=== PATIENT | male | born 1955 | race African-American/Black ===

== ENCOUNTER 2017-07-02 14:29 | Inpatient (IN) | payer MEDICARE, MEDICAID ==
[~2017-07-02] VITALS: Ht 188 cm; Wt 124.3 kg
[2017-07-02 17:18] LABS: HEMATOCRIT. 26.5 % (42.0-52.0); HEMOGLOBIN. 8.3 g/dL (14.0-18.0); MEAN CORPUSCULAR HEMOGLOBIN 17.9 pg (28.0-32.0); MEAN CORPUSCULAR VOLUME 57.4 fL (80.0-94.0); MEAN PLATELET VOLUME 8.5 fl (7.4-10.4); PLATELET 527 x1000/uL (130-400); RED BLOOD CELL COUNT 4.62 mill/uL (4.7-6.1); RED CELL DISTRIBUTION WIDTH 25.5 % (11.6-14.6)
[2017-07-02 17:23] LABS: INR 1.1; PROTHROMBIN TIME 11.6 sec (9.4-11.6)
[2017-07-02 17:26] LABS: CHLORIDE 90 mEq/L (98-107)
[2017-07-02 17:55] LABS: PLATELET ESTIMATE INCREASED
[2017-07-02] MEDS ORDERED: POTASSIUM CHLORIDE 20MEQ TABLET SR PO ONE (19:30)
[2017-07-02] MEDS ORDERED: ONDANSETRON HCL 4MG/2ML VIAL IV PRN (20:30)
[2017-07-02] MEDS ORDERED: IPRATROPIUM/ALBUTEROL 0.5-3(2.5)MG/3ML NEB INH PRN (20:30)
[2017-07-02] MEDS ORDERED: DOCUSATE SODIUM 100MG CAPSULE PO PRN (20:30)
[2017-07-02] MEDS ORDERED: GUAIFENESIN 200MG/10ML SUGAR FREE UDC PO PRN (20:30)
[2017-07-02] MEDS ORDERED: CLONIDINE 0.1MG TABLET PO PRN (20:30)
[2017-07-02] MEDS ORDERED: DIPHENHYDRAMINE 50MG/ML VIAL IV PRN (20:30)
[2017-07-02] MEDS ORDERED: MAGNESIUM/ALUMINUM HYDROXIDE/SIMETHICONE 30ML UDC PO PRN (20:30)
[2017-07-02] MEDS ORDERED: NITROGLYCERIN 0.4MG TABLET SL SL PRN (20:30)
[2017-07-02 20:59] LABS: T4 FREE 1.13 ng/dL (0.76-1.46)
[2017-07-02] MEDS ORDERED: ZOLPIDEM TARTRATE 5MG TABLET PO PRN (21:00)
[2017-07-02] MEDS ORDERED: MORPHINE SULFATE 4 MG/ML CPJ (NOT FOR IM USE) IV PRN (21:00)
[2017-07-02] MEDS ORDERED: NA PHOS,M-B/NA PHOS,DI-BA ENEMA 118ML PR PRN (21:00)
[2017-07-02] MEDS ORDERED: TRAMADOL 50MG TABLET PO PRN (21:00)
[2017-07-02 21:24] LABS: VITAMIN B12 SERUM 556 pg/mL (211-911)
[2017-07-02 21:26] LABS: FOLIC ACID (FOLATE) SERUM > 20.00 ng/mL (>5.38)
[2017-07-02 22:15] LABS: CREATINE KINASE 260 IU/L (39-308); CREATINE KINASE MB FRACTION 3.7 ng/mL (0.5-3.6); TROPONIN I < 0.02 ng/mL (0.00-0.04)
[2017-07-03] VITALS (11 sets, daily range): BP systolic 98–134; BP diastolic 56–69
[2017-07-03] MEDS: SODIUM CHLORIDE 0.9% 1,000 ML IV SCH ×2 (02:42→14:36)
[2017-07-03] MEDS ORDERED: BISA-81 PO (05:57)
[2017-07-03] MEDS ORDERED: OLAN10TA3 PO (05:57)
[2017-07-03] MEDS ORDERED: DIVA500T PO (05:57)
[2017-07-03] MEDS ORDERED: HYDR-4001 PO (05:57)
[2017-07-03] MEDS ORDERED: FERR325T23 PO (05:57)
[2017-07-03] MEDS ORDERED: ASCO-339 PO (05:57)
[2017-07-03] MEDS ORDERED: ACET-2178 PO (05:57)
[2017-07-03] MEDS ORDERED: BENZ1TAB7 PO (05:57)
[2017-07-03] MEDS ORDERED: KDUR10 PO (05:57)
[2017-07-03 07:16] LABS: CREATINE KINASE 211 IU/L (39-308); CREATINE KINASE MB FRACTION 2.8 ng/mL (0.5-3.6); TROPONIN I < 0.02 ng/mL (0.00-0.04)
[2017-07-03] MEDS: METOPROLOL TARTRATE 25MG TABLET PO SCH ×2 (09:23→21:30)
[2017-07-03] MEDS: PANTOPRAZOLE SODIUM 40 MG/VIAL IV SCH ×2 (09:23→21:30)
[2017-07-03] MEDS ORDERED: IPRATROPIUM/ALBUTEROL 0.5-3(2.5)MG/3ML NEB HHN PRN (12:15)
[2017-07-03 13:04] LABS: HEMATOCRIT. 24.3 % (42.0-52.0); HEMOGLOBIN. 7.4 g/dL (14.0-18.0); MEAN CORPUSCULAR HEMOGLOBIN 17.6 pg (28.0-32.0); MEAN CORPUSCULAR VOLUME 57.6 fL (80.0-94.0); MEAN PLATELET VOLUME 8.4 fl (7.4-10.4); PLATELET 459 x1000/uL (130-400); RED BLOOD CELL COUNT 4.21 mill/uL (4.7-6.1); RED CELL DISTRIBUTION WIDTH 25.3 % (11.6-14.6)
[2017-07-03 13:41] LABS: CHLORIDE 93 mEq/L (98-107)
[2017-07-03 13:58] LABS: PLATELET ESTIMATE SLIGHTLY INCREASED
[2017-07-03] MEDS ORDERED: ACETYLCYSTEINE 200MG/ML 20% VIAL 4ML INH SCH (14:00)
[2017-07-03] MEDS: IRON SUCROSE COMPLEX 100 MG/5 ML ML IV SCH (14:35)
[2017-07-03] MEDS ORDERED: DIATR MEGLU/DIATRIZOATE SOLN 30ML PO NR (15:45)
[2017-07-03] MEDS: BUDESONIDE 0.5MG/2ML NEB HHN SCH ×2 (16:24→19:39)
[2017-07-03] MEDS: IPRATROPIUM/ALBUTEROL 0.5-3(2.5)MG/3ML NEB HHN SCH ×3 (16:25→23:03)
[2017-07-03] MEDS ORDERED: PANTOPRAZOLE SODIUM 40 MG/VIAL IV SCH (21:00)
[2017-07-03] MEDS: ACETYLCYSTEINE 100MG/ML 10% VIAL 4ML INH SCH (23:04)
[2017-07-04] VITALS: BP 123/62
[2017-07-04 04:00] VITALS: BP 134/69
[2017-07-04] MEDS: IPRATROPIUM/ALBUTEROL 0.5-3(2.5)MG/3ML NEB HHN SCH ×5 (04:36→20:32)
[2017-07-04] MEDS: SODIUM CHLORIDE 0.9% 1,000 ML IV SCH ×2 (05:29→16:33)
[2017-07-04] MEDS ORDERED: ACETAMINOPHEN 325MG TABLET PO PRN (07:15)
[2017-07-04 07:16] LABS: CLARITY URINE CLEAR (CLEAR); COLOR URINE YELLOW (YELLOW); KETONES URINE NEGATIVE (NEGATIVE); LEUKOCYTE ESTERASE URINE TRACE (NEGATIVE); NITRITE URINE NEGATIVE (NEGATIVE); OCCULT BLOOD URINE NEGATIVE (NEGATIVE); PROTEIN URINE NEGATIVE (NEGATIVE); SPECIFIC GRAVITY URINE 1.016 (1.005-1.030)
[2017-07-04 08:00] VITALS: BP 128/65
[2017-07-04] MEDS ORDERED: SORBITOL 70% SOLN 30ML PO NR ×2 (08:00→16:00)
[2017-07-04] MEDS: PANTOPRAZOLE SODIUM 40 MG/VIAL IV SCH ×2 (09:03→21:54)
[2017-07-04] MEDS: IRON SUCROSE COMPLEX 100 MG/5 ML ML IV SCH (09:03)
[2017-07-04] MEDS: METOPROLOL TARTRATE 25MG TABLET PO SCH ×2 (09:09→21:54)
[2017-07-04] MEDS: BUDESONIDE 0.5MG/2ML NEB HHN SCH ×2 (09:16→20:32)
[2017-07-04] MEDS: ACETYLCYSTEINE 100MG/ML 10% VIAL 4ML INH SCH ×2 (09:16→15:28)
[2017-07-04 10:30] LABS: HEMATOCRIT. 26.2 % (42.0-52.0); HEMOGLOBIN. 8.1 g/dL (14.0-18.0); MEAN CORPUSCULAR HEMOGLOBIN 18.2 pg (28.0-32.0); MEAN CORPUSCULAR VOLUME 59.1 fL (80.0-94.0); MEAN PLATELET VOLUME 8.5 fl (7.4-10.4); PLATELET 446 x1000/uL (130-400); RED BLOOD CELL COUNT 4.44 mill/uL (4.7-6.1); RED CELL DISTRIBUTION WIDTH 26.5 % (11.6-14.6)
[2017-07-04 11:22] LABS: PLATELET ESTIMATE INCREASED
[2017-07-04 11:42] LABS: CHLORIDE 93 mEq/L (98-107)
[2017-07-04 12:00] VITALS: BP 120/60
[2017-07-04 16:00] VITALS: BP 143/67
[2017-07-04 20:00] VITALS: BP 125/69
[2017-07-05] VITALS: BP 108/63
[2017-07-05] MEDS: IPRATROPIUM/ALBUTEROL 0.5-3(2.5)MG/3ML NEB HHN SCH ×7 (00:41→23:56)
[2017-07-05] MEDS: ACETYLCYSTEINE 100MG/ML 10% VIAL 4ML INH SCH ×3 (00:41→19:39)
[2017-07-05 04:00] VITALS: BP 131/66
[2017-07-05] MEDS ORDERED: SORBITOL 70% SOLN 30ML PO NR (06:00)
[2017-07-05 07:31] LABS: INR 1.2; PARTIAL THROMBOPLASTIN TIME 32.9 sec (23.4-31.0); PROTHROMBIN TIME 12.6 sec (9.4-11.6)
[2017-07-05 08:00] VITALS: BP_SYST 118; BP_SYST 139; BP_DIAS 75; BP_DIAS 82
[2017-07-05] MEDS: BUDESONIDE 0.5MG/2ML NEB HHN SCH ×2 (08:53→19:39)
[2017-07-05] MEDS ORDERED: NA PHOS,M-B/NA PHOS,DI-BA ENEMA 118ML PR ONE (09:45)
[2017-07-05] MEDS: PANTOPRAZOLE SODIUM 40 MG/VIAL IV SCH ×2 (09:50→20:38)
[2017-07-05] MEDS: METOPROLOL TARTRATE 25MG TABLET PO SCH ×2 (09:50→20:38)
[2017-07-05] MEDS ORDERED: SIMETHICONE 40 MG/0.6 ML 30ML ONE (10:49)
[2017-07-05] MEDS ORDERED: SODIUM CHLORIDE 0.9% 10ML VIAL ONE (10:49)
[2017-07-05 12:00] VITALS: BP 111/71
[2017-07-05 16:00] VITALS: BP 107/77
[2017-07-05] MEDS ORDERED: MIDAZOLAM HCL 5 MG/5 ML VIAL ONE (16:16)
[2017-07-05] MEDS ORDERED: FENTANYL CITRATE/PF 50MCG/ML 2ML VIAL ONE (16:16)
[2017-07-05] MEDS ORDERED: MIDAZOLAM HCL 5 MG/5 ML VIAL IV ONE (16:40)
[2017-07-05] MEDS ORDERED: DIATR MEGLU/DIATRIZOATE SOLN 30ML PO SCH (18:00)
[2017-07-05] MEDS ORDERED: FENTANYL CITRATE/PF 50MCG/ML 2ML VIAL IV ONE (19:15)
[2017-07-05 20:00] VITALS: BP 155/82
[2017-07-06] VITALS (7 sets, daily range): BP systolic 140–159; BP diastolic 77–87
[2017-07-06] MEDS: ACETYLCYSTEINE 100MG/ML 10% VIAL 4ML INH SCH ×3 (04:45→15:33)
[2017-07-06] MEDS: IPRATROPIUM/ALBUTEROL 0.5-3(2.5)MG/3ML NEB HHN SCH ×4 (04:46→15:32)
[2017-07-06] MEDS ORDERED: OMEPRAZOLE 20MG CAPSULE EXTENDED RELEASE PO SCH (06:45)
[2017-07-06] MEDS: BUDESONIDE 0.5MG/2ML NEB HHN SCH (07:43)
[2017-07-06] MEDS ORDERED: IOHEXOL-300 100 ML BOTTLE ONE (09:30)
[2017-07-06] MEDS: PANTOPRAZOLE SODIUM 40 MG/VIAL IV SCH (10:32)
[2017-07-06] MEDS: METOPROLOL TARTRATE 25MG TABLET PO SCH (10:32)
[2017-07-06] MEDS ORDERED: FERROUS SULFATE 300MG/5ML UDC PO SCH (12:15)
[2017-07-06] MEDS ORDERED: CEPHALEXIN 500MG CAPSULE PO SCH (14:00)
== END 2017-07-06 20:00 | DRG 811 ==
LOC: ER 14:50 → 5WST 19:38 → EDBEDREQ 19:42 → EDBEDREQTM 19:42 → SUPCPDRO 20:17 → ENRESERV 22:37
PROVIDERS: ADMIT Internal Medicine; ATTEND Internal Medicine
PROC: 30233N1 Transfusion of Nonautologous Red Blood Cells into Peripheral Vein, Percutaneous Approach (ICD-10-PCS; 2017-07-03)
PROC: 0DBL8ZX Excision of Transverse Colon, Via Natural or Artificial Opening Endoscopic, Diagnostic (ICD-10-PCS; 2017-07-05)
PROC: 0DBK8ZX Excision of Ascending Colon, Via Natural or Artificial Opening Endoscopic, Diagnostic (ICD-10-PCS; 2017-07-05)
PROC: 0DB68ZX Excision of Stomach, Via Natural or Artificial Opening Endoscopic, Diagnostic (ICD-10-PCS; 2017-07-05)
PROC: 0DB58ZX Excision of Esophagus, Via Natural or Artificial Opening Endoscopic, Diagnostic (ICD-10-PCS; principal; 2017-07-05 16:00)
DX: D50.9 Iron deficiency anemia, unspecified (principal); J96.00 Acute respiratory failure, unspecified whether with hypoxia or hypercapnia; E44.0 Moderate protein-calorie malnutrition; E87.1 Hypo-osmolality and hyponatremia; K22.10 Ulcer of esophagus without bleeding; I48.0 Paroxysmal atrial fibrillation; E66.9 Obesity, unspecified; E78.00 Pure hypercholesterolemia, unspecified; F17.210 Nicotine dependence, cigarettes, uncomplicated; E87.6 Hypokalemia; K29.70 Gastritis, unspecified, without bleeding; K63.5 Polyp of colon; K44.9 Diaphragmatic hernia without obstruction or gangrene; G40.909 Epilepsy, unspecified, not intractable, without status epilepticus; I25.10 Atherosclerotic heart disease of native coronary artery without angina pectoris; I10 Essential (primary) hypertension; K52.9 Noninfective gastroenteritis and colitis, unspecified; Z66 Do not resuscitate; M48.00 Spinal stenosis, site unspecified; Z68.35 Body mass index [BMI] 35.0-35.9, adult
CPT/HCPCS: 36415; 71045; 74177; 80048; 80053; 80061; 81003; 82105; 82270; 82378; 82550; 82553; 82607; 82746; 83036; 83540; 83550; 84439; 84443; 84484; 85025; 85610; 85730; 86850; 86900; 86920; 87040; 87077; 87086; 87186; 88305; 88312; 88313; 93005; 93306; 93970; 94640; 94664; 99285; A4216; A6261; C9113; J2250; J3010; J7030; J7608; J7620; J7626; P9016; Q9963; Q9967